=== PATIENT | female | born 1935 | race Caucasian/White ===

== ENCOUNTER 2024-06-06 00:54 | Emergency (ER) | payer MEDICARE, OTHER ==
[~2024-06-06] VITALS: Ht 160 cm; Wt 70.0 kg
[~2024-06-06 00:54] MED LIST: AMLO10TA80 PO; ASPI-1160 PO; ATOR20TA PO; EMPA10TA PO; FE300LUD PO; GABA-529 PO; HYDR100T31 PO; LEVO50TA8 PO; LINA5TAB PO; METO-539 PO; METO100T16 PO; NIFE90TA60 PO; PANT40TA51 PO
[2024-06-06 00:59] VITALS: O2SAT 98
[2024-06-06 02:04] LABS: BASOPHILS % 0.4 % (0.0-2.0); DIFFERENTIAL COMMENT 0; EOSINOPHILS % 0.7 % (0.0-5.0); HEMATOCRIT. 38.5 % (36.0-48.0); HEMOGLOBIN. 12.4 g/dL (12.0-16.0); LYMPHOCYTES % 20.1 % (20.0-50.0); MEAN CORPUSCULAR HEMOGLOBIN 26.7 pg (28.0-32.0); MEAN CORPUSCULAR HGB CONC 32.2 g/dL (31.0-37.0); MEAN CORPUSCULAR VOLUME 82.9 fL (81.0-99.0); MEAN PLATELET VOLUME 7.4 fl (7.4-10.4); MONOCYTES % 5.4 % (2.0-8.0); NEUTROPHILS % 73.4 % (40.0-76.0); PLATELET 244 x1000/uL (130-400); RED BLOOD CELL COUNT 4.64 mill/uL (4.2-5.4); RED CELL DISTRIBUTION WIDTH 20.8 % (11.6-14.6); WHITE BLOOD COUNT 11.3 x1000/uL (4.5-11.0)
[2024-06-06 02:08] LABS: CHLORIDE 100 mEq/L (98-107); POTASSIUM 4.1 mEq/L (3.5-5.1); SODIUM 137 mEq/L (136-145)
[2024-06-06 02:09] LABS: CARBON DIOXIDE 26 mEq/L (21-32)
[2024-06-06 02:10] LABS: CALCIUM 8.9 mg/dL (8.7-10.4)
[2024-06-06 02:14] LABS: CREATININE 1.2 mg/dL (0.6-1.0)
[2024-06-06 02:15] LABS: GLUCOSE 171 mg/dL (70-105); TROPONIN I HIGH SENSITIVITY 4 ng/L (3.0-34); UREA NITROGEN BLOOD 17 mg/dL (9-23)
[2024-06-06 04:28] LABS: TROPONIN I HIGH SENSITIVITY 4 ng/L (3.0-34)
[2024-06-06 04:43] VITALS: BP 142/40; PULSE 58; RESP 26; TEMP 36.1; O2SAT 99
== END 2024-06-06 04:59 | disposition home or self-care (01) ==
LOC: ER 00:54
DX: I11.0 Hypertensive heart disease with heart failure (principal); E11.9 Type 2 diabetes mellitus without complications; I50.9 Heart failure, unspecified; Z79.899 Other long term (current) drug therapy; Z88.8 Allergy status to other drugs, medicaments and biological substances
CPT/HCPCS: 36415; 71045; 80048; 83880; 84484; 85025; 93005; 99285; A4606